=== PATIENT | female | born 1995 | race Caucasian/White ===

== ENCOUNTER 2017-10-29 21:33 | Emergency (ER) | payer OTHER ==
[~2017-10-29] VITALS: Ht 170.2 cm; Wt 65.9 kg
[2017-10-29 22:37] LABS: EOS # 0.2 (0.04-0.40); EOS % 2.9 % (1.0-5.0); HEMATOCRIT 40.4 % (37.0-47.0); HEMOGLOBIN 13.5 g/dL (12.5-16.0); LYMPH# 1.9 (1.50-4.00); MEAN CELL VOLUME 95 fl (78-100); MEAN CORPUSCULAR HEMOGLOBIN 32 pg (27-31); MEAN CORPUSCULAR HGB CONC 33 g/dL (33-37); MEAN PLATELET VOLUME 9.9 fl (7.4-10.4); MONO # 0.5 (0.20-0.80); NEU # 4.4 (1.40-6.50); PLATELET COUNT 273 K/mm3 (130-400); RED BLOOD COUNT 4.27 M/mm3 (4.10-5.30); RED CELL DISTRIBUTION WIDTH 12.1 % (11.5-14.5)
[2017-10-29] MEDS ORDERED: TRI-SPRINTEC T1 EACH PO (22:39)
[2017-10-29 22:49] LABS: ALBUMIN 4.1 g/dL (3.5-5.0); BUN/CREATININE RATIO 13.9 (6.0-26.0); CALCIUM 9.2 mg/dL (8.4-10.2); POTASSIUM 3.7 mmol/L (3.6-5.0); TOTAL BILIRUBIN 0.2 mg/dL (0.2-1.3); TOTAL PROTEIN 7.3 g/dL (6.3-8.2)
[2017-10-29 23:05] LABS: URINE APPEARANCE CLEAR; URINE BILIRUBIN NEGATIVE (NEGATIVE); URINE BLOOD TRACE (NEGATIVE); URINE COLOR YELLOW; URINE GLUCOSE NEGATIVE (NEGATIVE); URINE KETONE NEGATIVE (NEGATIVE); URINE LEUKOCYTE ESTERASE TRACE (NEGATIVE); URINE NITRATE NEGATIVE (NEGATIVE); URINE PROTEIN(semi-quant) NEGATIVE (NEGATIVE); URINE UROBILINOGEN NORMAL (NORMAL)
[2017-10-29 23:12] LABS: URINE WBC 0-1 /hpf (0-3)
[2017-10-29 23:53] VITALS: BP 110/69
== END 2017-10-29 23:53 | disposition home or self-care (01) ==
LOC: ED 21:33
PROVIDERS: Nurse Practitioner Family
DX: R10.31 Right lower quadrant pain (principal); R10.11 Right upper quadrant pain